=== PATIENT | male | born 1975 | race Caucasian/White ===

== ENCOUNTER 2024-09-05 12:33 | Emergency (ER) | payer OTHER ==
[~2024-09-05] VITALS: Ht 175.3 cm; Wt 76.0 kg
[2024-09-05 12:38] VITALS: O2SAT 100
[2024-09-05 13:29] LABS: CHLORIDE 107 mEq/L (98-107); POTASSIUM 3.9 mEq/L (3.5-5.1); SODIUM 139 mEq/L (136-145)
[2024-09-05 13:30] LABS: CARBON DIOXIDE 22 mEq/L (21-32)
[2024-09-05 13:31] LABS: BASOPHILS % 0.7 % (0.0-2.0); CALCIUM 9.3 mg/dL (8.7-10.4); EOSINOPHILS % 1.5 % (0.0-5.0); HEMATOCRIT. 49.7 % (42.0-52.0); HEMOGLOBIN. 16.4 g/dL (14.0-18.0); LYMPHOCYTES % 14.9 % (20.0-50.0); MEAN CORPUSCULAR HEMOGLOBIN 29.6 pg (28.0-32.0); MEAN CORPUSCULAR VOLUME 89.7 fL (80.0-94.0); MEAN PLATELET VOLUME 7.4 fl (7.4-10.4); MONOCYTES % 7.7 % (2.0-8.0); NEUTROPHILS % 75.2 % (40.0-76.0); PLATELET 296 x1000/uL (130-400); RED BLOOD CELL COUNT 5.55 mill/uL (4.7-6.1); RED CELL DISTRIBUTION WIDTH 13.3 % (11.6-14.6); WHITE BLOOD COUNT 11.6 x1000/uL (4.5-11.0)
[2024-09-05 13:35] LABS: CREATININE 0.9 mg/dL (0.6-1.3); GLUCOSE 145 mg/dL (70-105); UREA NITROGEN BLOOD 12 mg/dL (9-23)
[2024-09-05] MEDS: ASPIRIN 325MG TABLET PO ONE (13:42)
[2024-09-05 14:27] LABS: TROPONIN I HIGH SENSITIVITY < 4 ng/L (3.0-53)
[2024-09-05] MEDS ORDERED: FAMOTIDINE 20MG TABLET PO ONE (14:30)
[2024-09-05] MEDS ORDERED: ACETAMINOPHEN 325MG TABLET PO ONE (14:30)
[2024-09-05 14:44] LABS: ALANINE AMINOTRANSFERASE 33 IU/L (10-49); ALBUMIN 4.2 g/dL (3.2-4.8); ASPARTATE AMINOTRANSFERASE 23 IU/L (<34); BILIRUBIN DIRECT 0.1 mg/dL (<=3.0); BILIRUBIN TOTAL 0.5 mg/dL (0.1-1.0); PROTEIN TOTAL 7.4 g/dL (6.0-8.3)
[2024-09-05] MEDS ORDERED: KETOROLAC 30MG/ML VIAL IM ONE (16:00)
[2024-09-05] MEDS ORDERED: KETO10TA2 MT (16:03)
[2024-09-05 17:07] VITALS: BP 100/54; PULSE 56; RESP 18; TEMP 37.1; O2SAT 100
== END 2024-09-05 13:02 | disposition home or self-care (01) ==
LOC: ER 12:33 → CANBEDREQ 16:55
DX: K85.10 Biliary acute pancreatitis without necrosis or infection (principal); K80.20 Calculus of gallbladder without cholecystitis without obstruction; R07.89 Other chest pain
CPT/HCPCS: 36415; 71045; 76705; 80048; 80076; 84484; 85025; 93005; 99285